=== PATIENT | male | born 1970 ===

== ENCOUNTER 2017-05-22 02:28 | Emergency (ER) | payer SELFPAY ==
[~2017-05-22] VITALS: Ht 180.3 cm; Wt 100.0 kg
[2017-05-22] VITALS (7 sets, daily range): BP systolic 108–152; BP diastolic 62–99; PULSE 59–89; RESP 15–18; TEMP 98.1; O2SAT 98–100
[2017-05-22] MEDS ORDERED: ceFAZolin 2 GM PREMIX 50 ML ONE (03:04)
[2017-05-22] MEDS ORDERED: ONDANSETRON HCL 4 MG/2 ML VIAL ONE (03:04)
[2017-05-22] MEDS ORDERED: MORPHINE SULFATE 8 MG/ML INJ ONE (03:04)
[2017-05-22] MEDS ORDERED: DIPHTH/TETANUS/ACEL PERTUSSIS (BOOSTER) 0.5 ML VIAL/PFS IM ONE (03:05)
[2017-05-22] MEDS ORDERED: LORazepam 2 MG/ML VIAL ONE ×2 (03:10→04:04)
[2017-05-22] MEDS ORDERED: MIDAZOLAM HCL 5 MG/ML VIAL (1 ML) ONE ×5 (03:17→03:50)
[2017-05-22] MEDS ORDERED: HYDROmorphone HCL PF 2 MG/ML VIAL ONE (03:22)
--- NOTE | 2017-05-22 03:43 | RADRPT ---
EXAM DATE/TIME: 05/22/2017 03:18 [facility] COMPARISON: No previous studies available for comparison. INDICATIONS : Trauma alert. Fall. MEDICAL HISTORY : None. SURGICAL HISTORY : None. ENCOUNTER: Initial ACUITY: 1 day PAIN SCORE: 10/10 LOCATION: Bilateral chest FINDINGS: A single view of the chest demonstrates the lungs to be symmetrically aerated without evidence of mas s, infiltrate or effusion. The cardiomediastinal contours are unremarkable. Osseous structures are intact. There is motion artifact. CONCLUSION: No acute disease. Godfrey Dalton MD on May 22, 2017 at 3:41 Board Certified Radiologist. This report was verified electronically.
[2017-05-22] MEDS ORDERED: MORPHINE SULFATE 8 MG/ML INJ IV PUSH PRN (03:45)
[2017-05-22] MEDS ORDERED: SODIUM CHLORIDE 0.9% FLUSH 10 ML FLUSH IV FLUSH PRN (03:45)
[2017-05-22] MEDS ORDERED: MAGNESIUM HYDROXIDE SUSP 30 ML CUP PO PRN (03:45)
[2017-05-22] MEDS ORDERED: ONDANSETRON HCL 4 MG/2 ML VIAL IV PRN (03:45)
[2017-05-22] MEDS ORDERED: ACETAMINOPHEN/HYDROcodone 325 MG/5 MG TAB PO PRN ×2 (03:45)
[2017-05-22] MEDS ORDERED: CHLORHEXIDINE GLUCONATE 2 % 1 PACK (2 CLOTHS) TOP PRN (03:45)
[2017-05-22] MEDS ORDERED: MISCELLANEOUS NURSING INFORMATION XX SCH (03:45)
[2017-05-22] MEDS ORDERED: ENALAPRILAT 1.25 MG/ML VIAL IV PRN (03:45)
[2017-05-22 03:48] LABS: I-STAT POTASSIUM 3.8 MMOL/L (3.5-4.9)
[2017-05-22 03:50] LABS: BASOPHIL % 0.3 % (0.0-2.0); EOSINOPHIL # 0.1 TH/MM3 (0-0.4); EOSINOPHIL % 1.5 % (0.0-4.0); HEMATOCRIT 41.7 % (39.0-51.0); LYMPH % 34.6 % (9.0-44.0); LYMPHOCYTE # 3.2 TH/MM3 (1.0-4.8); MEAN CELL VOLUME 96.4 FL (80.0-100.0); MEAN CORPUSCULAR HEMOGLOBIN 33.1 PG (27.0-34.0); MEAN CORPUSCULAR HGB CONC 34.4 % (32.0-36.0); MONO % 9.1 % (0.0-8.0); NEUT % 54.5 % (16.0-70.0); PLATELET COUNT 174 TH/MM3 (150-450); RED BLOOD COUNT 4.32 MIL/MM3 (4.50-5.90); RED CELL DISTRIBUTION WIDTH 13.6 % (11.6-17.2); WHITE BLOOD COUNT 9.2 TH/MM3 (4.0-11.0)
--- NOTE | 2017-05-22 03:53 | PD ---
HPI Chief Complaint: Trauma (Alert) Time Seen by Provider: 03:32 Travel History International Travel<30 days: No Contact w/Intl Traveler<30days: No Traveled to known affect area: No History of Present Illness HPI The patient is a 47 year old male who presents to the [facility] emergency department with a history of reportedly prior to arrival falling off of 2 scaffolds at work. He reports that his boss drove him in. He reports that each scaffold is 7 feet. He estimates that he fell 14 feet to the ground. He reports that he landed on his right side. He reports having severe right sided back pain, chest pain, and shortness of breath. The patient also reports having low back pain. The patient ambulated into the emergency department. The patient was initially evaluated by Dr. Damon while I was in with another critical patient. As the patient was noted to be diaphoretic and experiencing chest pain with shortness of breath with diminished breath sounds on the right side the patient was called as a trauma alert. The patient is unsure when his tetanus was last updated. On review of systems, the patient reports having neck pain, mid and low back pain, chest pain, shortness of breath, abdominal pain. He reports having numbness to the right leg. On review of systems otherwise, he denies any recent fevers, cough, congestion, vomiting, or diarrhea. He denies having any recent urinary symptoms. [facility] Past Medical History Narrative Medical The patient reports having a past medical history of posttraumatic stress disorder. Medical History: Denies Significant Hx Diminished Hearing: No Tetanus Vaccination: Unknown Influenza Vaccination: No Past Surgical History Narrative Surgical The patient denies any past surgical history. Surgical History: No Previous Surgery Social History Alcohol Use: No Tobacco Use: Yes (1PPD) Substance Use: Yes (occasional marijuana) Allergies-Medications (Allergen,Severity, Reaction): Coded Allergies: Haldol (Verified Allergy, Unknown, 05/22/17) Risperdal (Verified Allergy, Unknown, 05/22/17) Tylenol (Verified Allergy, Unknown, 05/22/17) Reported Meds & Prescriptions Reported Meds & Active Scripts Active No Active Prescriptions or Reported Medications Review of Systems Except as stated in HPI: all other systems reviewed are Neg General / Constitutional: No: Fever Eyes: No: Visual changes HENT: No: Headaches Cardiovascular: Positive: Chest Pain or Discomfort, Diaphoresis, Dyspnea on exertion Respiratory: Positive: Shortness of Breath Gastrointestinal: Positive: Abdominal Pain Genitourinary: No: Dysuria Musculoskeletal: Positive: Myalgias, Arthralgias, Limited ROM, Pain Skin: No Rash Neurologic: No: Weakness, Focal Abnormalities, Headache, Change in Mentation, Slurred Speech, Sensory Disturbance Psychiatric: No: Depression Endocrine: No: Polydipsia Hematologic/Lymphatic: No: Easy Bruising Physical Exam Narrative General: The patient is a well-developed well-nourished male, uncomfortable appearing on arrival, slightly diaphoretic. Head and Neck exam: Head is normocephalic atraumatic. No facial bone tenderness or increased facial bone mobility noted on palpation. Eyes: EOMI, pupils are equal round and reactive to light. Nose: Midline septum with pink mucous membranes Mouth: Dentition unremarkable. Moist mucus membranes. Posterior oropharynx is not erythematous. No tonsillar hypertrophy. Uvula midline. Airway patent. Neck: The patient is immobilized in a cervical collar. No tracheal deviation. The trachea appears midline. Cardiovascular: Sinus tachycardia in the low 100s without murmurs, gallops, or rubs. No pulse deficit to the extremities and simultaneous auscultation and palpation of his radial artery. Lungs: Clear to auscultation bilaterally. No wheezes, rhonchi, or rales. He has chest wall tenderness diffusely on palpation along the right lateral chest wall and right posterior chest wall. No erythema or ecchymosis noted. No crepitus, step off, or flail segment noted. Abdomen: Soft, without tenderness to palpation in all 4 quadrants of the abdomen. No guarding, rebound, or rigidity. No erythema or ecchymosis noted. Extremities: No instability or pain noted on pelvic rock. No clubbing, cyanosis , or edema. 2+ pulses in all 4 extremities. No extremity tenderness or deformity noted on palpation or passive/ active range of motion, except Back: The patient reports having tenderness on palpation of his entire thoracic spine as well as his lumbar spine. No stepoff or crepitus noted. No costovertebral angle tenderness to palpation. No erythema or ecchymosis. Neurologic Exam: The patient was agitated and uncooperative. He is moving all of his extremities equally with no evidence of facial asymmetry. Skin Exam: No rash noted. Intact skin that is warm and dry. Data Data Last Documented VS Vital Signs Date Time Temp Pulse Resp B/P Pulse Ox O2 Delivery O2 Flow Rate FiO2 05/22/17 06:26 80 16 111/78 100 Room Air 05/22/17 04:38 2 05/22/17 02:36 98.1 Orders Morphine Inj (Morphine Inj) (05/22/17 03:04) Ondansetron Inj (Zofran Inj) (05/22/17 03:04) Cefazolin 2 Gm Premix (Ancef 2 Gm Premix (05/22/17 03:04) Dpge-Oqw-Qwqbcz (Booster) Inj (Boostrix (05/22/17 03:05) Lorazepam Inj (Ativan Inj) (05/22/17 03:10) I-Stat Profile (05/22/17 03:11) I-Stat Creatinine (05/22/17 03:11) Complete Blood Count With Diff (05/22/17 03:11) Prothrombin Time / Inr (Pt) (05/22/17 03:11) Act Partial Throm Time (Ptt) (05/22/17 03:11) Type And Screen (05/22/17 03:11) Red Blood Cells (Rbc) (05/22/17 03:11) Urinalysis - C+S If Indicated (05/22/17 03:11) Drug Screen, Random Urine (05/22/17 03:11) Chest, Single Ap (05/22/17 03:11) Ct Brain W/O Iv Contrast(Rout) (05/22/17 03:11) Ct Cerv Spine W/O Contrast (05/22/17 03:11) Ct Abd/Pel W Iv Contrast(Rout) (05/22/17 03:11) Ct Thorax/ Chest W Iv Contrast (05/22/17 03:11) Ct Thor Spine W/O Contrast (05/22/17 03:11) Ct Lumb Spine W/O Contrast (05/22/17 03:11) Iv Access Insert/Monitor (05/22/17 03:11) Ecg Monitoring (05/22/17 03:11) Oximetry (05/22/17 03:11) Oxygen Administration (05/22/17 03:11) Midazolam Inj (Versed Inj) (05/22/17 03:17) Hydromorphone Pf Inj (Dilaudid Pf Inj) (05/22/17 03:22) Midazolam Inj (Versed Inj) (05/22/17 03:23) Midazolam Inj (Versed Inj) (05/22/17 03:33) Consult Blanca Gts (05/22/17 ) Admit To Inpatient (05/22/17 ) Vital Signs (Adult) VERNA.QSHIFT (05/22/17 03:32) Intake + Output VERNA.Q8H (05/22/17 03:32) Neuro Checks VERNA.Q4H (05/22/17 03:32) Activity Bed Rest (05/22/17 03:32) Instruction (05/22/17 03:32) Resp Oxygen Alec C Titrat 1-4 L (05/22/17 ) Sodium Chloride 0.9% Flush (Ns Flush) (05/22/17 03:45) Morphine Inj (Morphine Inj) (05/22/17 03:45) Acetamin-Hydrocod 325-5 Mg ([place] 5-325 (05/22/17 03:45) Acetamin-Hydrocod 325-5 Mg ([place] 5-325 (05/22/17 03:45) Enalaprilat Inj (Vasotec Inj) (05/22/17 03:45) Ondansetron Inj (Zofran Inj) (05/22/17 03:45) Bacitracin Oint (Baciguent Oint) (05/22/17 09:00) Docusate Sodium (Colace) (05/22/17 09:00) Magnesium Hydroxide Liq (Milk Of Magnesi (05/22/17 03:45) ^ Initiate Protocol (05/22/17 03:32) Instruction (05/22/17 03:32) [facility] Nursing Information (05/22/17 03:45) Chlorhexidine 2% Cloth (Chlorhexidine 2% (05/22/17 04:00) Chlorhexidine 2% Cloth (Chlorhexidine 2% (05/22/17 03:45) Mrsa Pcr Surveillance (05/22/17 03:32) Inpatient Certification (05/22/17 ) Midazolam Inj (Versed Inj) (05/22/17 03:46) Midazolam Inj (Versed Inj) (05/22/17 03:50) Collar [place] (05/22/17 ) Lorazepam Inj (Ativan Inj) (05/22/17 04:04) Propofol 200 Mg/20 Ml Inj (Diprivan 200 (05/22/17 04:06) Diet Clear Liquid (05/22/17 Breakfast) Activity Oob Ad Solange (05/22/17 04:17) Restraints Non-Violent VERNA.Q3H (05/22/17 04:30) Psych Screen (05/22/17 04:40) Iohexol 350 Inj (Omnipaque 350 Inj) (05/22/17 04:42) Trauma Office Use Only (05/22/17 06:51) Labs Laboratory Tests Test 05/22/17 05/22/17 03:20 03:30 White Blood Count 9.2 TH/MM3 Red Blood Count 4.32 MIL/MM3 Hemoglobin 14.3 GM/DL Hematocrit 41.7 % Mean Corpuscular Volume 96.4 FL Mean Corpuscular Hemoglobin 33.1 PG Mean Corpuscular Hemoglobin 34.4 % Concent Red Cell Distribution Width 13.6 % Platelet Count 174 TH/MM3 Mean Platelet Volume 7.9 FL Neutrophils (%) (Auto) 54.5 % Lymphocytes (%) (Auto) 34.6 % Monocytes (%) (Auto) 9.1 % Eosinophils (%) (Auto) 1.5 % Basophils (%) (Auto) 0.3 % Neutrophils # (Auto) 5.0 TH/MM3 Lymphocytes # (Auto) 3.2 TH/MM3 Monocytes # (Auto) 0.8 TH/MM3 Eosinophils # (Auto) 0.1 TH/MM3 Basophils # (Auto) 0.0 TH/MM3 CBC Comment AUTO DIFF Differential Total Cells 100 Counted Neutrophils % (Manual) 42 % Band Neutrophils % 2 % Lymphocytes % 44 % Monocytes % 6 % Eosinophils % 3 % Neutrophils # (Manual) 4.3 TH/MM3 Metamyelocytes 1 % Myelocytes 2 % Differential Comment FINAL DIFF MANUAL Atypical Lymphocytes % Platelet Estimate NORMAL Platelet Morphology Comment NORMAL Red Cell Morphology Comment NORMAL Prothrombin Time 10.7 SEC Prothromb Time International 1.0 RATIO Ratio Activated Partial 28.0 SEC Thromboplast Time Blood Type O POSITIVE Antibody Screen NEGATIVE Crossmatch Leukocyte-Reduced Red Blood Cells Blood Bank Comment Bedside Hemoglobin 13.9 G/DL Bedside Hematocrit 41.0 % Bedside Sodium 143 MMOL/L Bedside Potassium 3.8 MMOL/L Bedside Chloride 105 MMOL/L Bedside Blood Urea Nitrogen 8 MG/DL Bedside Creatinine 0.7 MG/DL Bedside Glucose 93 MG/DL [facility] Medical Screen Exam Complete: Yes Emergency Medical Condition: Yes Medical Record Reviewed: Yes EKG Prior to Arrival: Yes Interpretation(s) Last Impressions Thoracic Spine CT 05/22/17310 Signed Impressions: Service Date/Time: Monday, May 22, 2017 04:06 - CONCLUSION: Negative trauma study. Godfrey Dalton MD Lumbar Spine CT 05/22/17310 Signed Impressions: Service Date/Time: Monday, May 22, 2017 03:52 - CONCLUSION: Negative trauma study. Godfrey Dalton MD Head CT 05/22/17310 Signed Impressions: Service Date/Time: Monday, May 22, 2017 03:32 - CONCLUSION: Limited suboptimal study demonstrating no definite hemorrhage or mass effect. Godfrey Dalton MD Chest X-Ray 05/22/17310 Signed Impressions: Service Date/Time: Monday, May 22, 2017 03:18 - CONCLUSION: No acute disease. Godfrey Dalton MD Chest CT 05/22/17310 Signed Impressions: Service Date/Time: Monday, May 22, 2017 04:06 - CONCLUSION: Negative trauma study. Godfrey Dalton MD Cervical Spine CT 05/22/17310 Signed Impressions: Service Date/Time: Monday, May 22, 2017 03:47 - CONCLUSION: Negative trauma CT. Godfrey Dalton MD Abdomen/Pelvis CT 05/22/17310 Signed Impressions: Service Date/Time: Monday, May 22, 2017 04:06 - CONCLUSION: Negative trauma CT Godfrey Dalton MD Differential Diagnosis Intracranial trauma, versus cervical spine trauma, versus intrathoracic trauma, versus intra-abdominal trauma Narrative Course During the course of the patients emergency department visit, the patients history, examination, and differential diagnosis were reviewed with the patient. The patient had IV access obtained and blood work sent for analysis. A trauma alert was called while the patient was in the emergency department. The trauma surgeon, was available and trauma bay to assess the patient with me. The patient was initially provided normal saline 1 L IV fluid bolus. The patient had his tetanus updated. The patient was given morphine 4 mg IV, Zofran 4 mg IV. The patient continued to be agitated and reported severe pain and was given an additional 4 mg IV. The patient was agitated and was given Ativan 1 mg IV. The patient continued to be agitated and was given Versed 2.5 mg IV so that he could be further assessed and lie back in the bed to obtain imaging. The patients laboratory studies were reviewed and remarkable for a white count of 9.2, hemoglobin 14.3, platelets 174 with 9.1 monocytes, i-STAT reveals a sodium of 143, potassium 3.8, chloride 105, BUN 8, creatinine 0.7, glucose 93, PT 10.7, PTT 28 Radiology studies were reviewed and remarkable for a CT scan of the brain that shows a live butted suboptimal study, demonstrating no definite hemorrhage or mass effect. Chest x-ray is unremarkable, CT scan of the C-spine, chest CT, T- spine CT, lumbar spine CT, CT scan of the abdomen and pelvis showed no evidence of acute traumatic injury. The patient's case was discussed again with . He was agreeable with the plan for the patient to be discharged from the hospital. The patient was brought back to the emergency department bed. The patient continued to be agitated, stating that he wanted to leave. We did explain to him that he has been given medication that can be sedating, therefore he would need to be monitored in the emergency department until the sedative medication has worn off. The patient continued to be agitated. The patient was restrained for his and the staff's safety. A psychiatric screen was ordered. The patient has been medically cleared for evaluation by the psychiatric screener. Trauma Alert - Level One Trauma Alert Level One: Full trauma team activate, Patient evaluated, Trauma surgeon summoned Time Surgeon Summoned: 03:00 (Surgeon asked to come in) Physician Communication The patient's case is discussed with Dr. Polk. Diagnosis Diagnosis: Primary Impression: Fall Qualified Code: W19.XXXA - Fall, initial encounter Additional Impressions: Acute psychosis Agitation Scripts No Active Prescriptions or Reported Meds Lidia Sotomayor MD May 22, 2017 03:53
[2017-05-22 03:54] LABS: HEMO FLAGS AUTO DIFF
[2017-05-22 03:58] LABS: PROTHROMBIN TIME - PATIENT 10.7 SEC (9.8-11.6)
[2017-05-22] MEDS ORDERED: CHLORHEXIDINE GLUCONATE 2 % 1 PACK (2 CLOTHS) TOP SCH (04:00)
[2017-05-22] MEDS ORDERED: PROPOFOL 200 MG/20 ML AMP ONE (04:06)
--- NOTE | 2017-05-22 04:30 | RADRPT ---
EXAM DATE/TIME: 05/22/2017 03:32 [facility] COMPARISON: No previous studies available for comparison. INDICATIONS : Trauma. Fell 14 feet onto right side. RADIATION DOSE: 56.35 CTDIvol (mGy) MEDICAL HISTORY : None SURGICAL HISTORY : None. ENCOUNTER: Initial ACUITY: 1 day PAIN SCALE: 10/10 LOCATION: cranial TECHNIQUE: Multiple contiguous axial images were obtained of the head. Using automated exposure control and adj ustment of the mA and/or kV according to patient size, radiation dose was kept as low as reasonably a chievable to obtain optimal diagnostic quality images. DICOM format image data is available electro nically for review and comparison. FINDINGS: Suboptimal examination due to extensive motion artifact significantly limiting the sensitiv ity of this exam. There is no definite gross hemorrhage or definite mass effect however small hemorrh ages could be obscured. The ventricular system appears within normal limits. The posterior fossa and brainstem are intact. There is no visualized skull fracture. CONCLUSION: Limited suboptimal study demonstrating no definite hemorrhage or mass effect. Godfrey Dalton MD on May 22, 2017 at 4:25 Board Certified Radiologist. This report was verified electronically.
--- NOTE | 2017-05-22 04:31 | RADRPT ---
EXAM DATE/TIME: 05/22/2017 03:47 [facility] COMPARISON: No previous studies available for comparison. INDICATIONS : Trauma. Fell 14 feet onto right side. RADIATION DOSE: 69.20 CTDIvol (mGy) MEDICAL HISTORY : None SURGICAL HISTORY : None. ENCOUNTER: Initial ACUITY: 1 day PAIN SCALE: 10/10 LOCATION: neck TECHNIQUE: Volumetric scanning of the cervical spine was performed. Multiplanar reconstructions i n the sagittal, coronal and oblique axial planes were performed. Using automated exposure control a nd adjustment of the mA and/or kV according to patient size, radiation dose was kept as low as reason ably achievable to obtain optimal diagnostic quality images. DICOM format image data is available e lectronically for review and comparison. FINDINGS: The sagittal reconstructions demonstrate normal alignment and normal prevertebral soft tissues. The d ens is intact and there is a normal atlantoaxial relationship. The axial images demonstrate that the vertebral bodies and posterior elements are intact. The soft ti ssues are within normal limits. There is no evidence of acute fracture or malalignment. CONCLUSION: Negative trauma CT. Godfrey Dalton MD on May 22, 2017 at 4:29 Board Certified Radiologist. This report was verified electronically.
--- NOTE | 2017-05-22 04:33 | RADRPT ---
EXAM DATE/TIME: 05/22/2017 04:06 [facility] COMPARISON: No previous studies available for comparison. INDICATIONS : Trauma. Fell 14 feet onto right side. IV CONTRAST: 95 cc Omnipaque 350 (iohexol) IV ; Cumulative dose for multiple exams. RADIATION DOSE: 7.31 CTDIvol (mGy) ; Combined studies - Thorax/Abdomen/Pelvis MEDICAL HISTORY : None SURGICAL HISTORY : None. ENCOUNTER: Initial ACUITY: 1 day PAIN SCALE: 10/10 LOCATION: chest TECHNIQUE: Volumetric scanning of the chest was performed. Using automated exposure control and adjustment of t he mA and/or kV according to patient size, radiation dose was kept as low as reasonably achievable to obtain optimal diagnostic quality images. DICOM format image data is available electronically for review and comparison. Follow-up recommendations for incidentally detected pulmonary nodules are based at a minimum on nodul e size and patient risk factors according to Fleischner Society Guidelines. FINDINGS: LUNGS: There is no consolidation or pneumothorax. No concerning pulmonary nodule is visualized. PLEURA: There is no pleural thickening or pleural effusion. MEDIASTINUM: The heart and great vessels demonstrate no acute abnormality. There is no mediastinal or hilar lymph adenopathy. AXILLAE: Within normal limits. No lymphadenopathy. SKELETAL: Within normal limits for patient age. MISCELLANEOUS: The visualized upper abdominal organs demonstrate no acute abnormality. CONCLUSION: Negative trauma study. Godfrey Dalton MD on May 22, 2017 at 4:30 Board Certified Radiologist. This report was verified electronically.
--- NOTE | 2017-05-22 04:34 | RADRPT ---
EXAM DATE/TIME: 05/22/2017 04:06 [facility] COMPARISON: No previous studies available for comparison. INDICATIONS : Trauma. Fell 14 feet onto right side. IV CONTRAST: 95 cc Omnipaque 350 (iohexol) IV ; Cumulative dose for multiple exams. ORAL CONTRAST: No oral contrast ingested. RADIATION DOSE: 7.31 CTDIvol (mGy) ; Combined studies - Thorax/Abdomen/Pelvis MEDICAL HISTORY : None SURGICAL HISTORY : None. ENCOUNTER: Initial ACUITY: 1 day PAIN SCALE: 10/10 LOCATION: abdomen TECHNIQUE: Volumetric scanning of the abdomen and pelvis was performed. Using automated exposure control and ad justment of the mA and/or kV according to patient size, radiation dose was kept as low as reasonably achievable to obtain optimal diagnostic quality images. DICOM format image data is available electro nically for review and comparison. FINDINGS: There is mild streak and motion artifact. LOWER LUNGS: The visualized lower lungs are clear. LIVER: Homogeneous density without lesion. There is no dilation of the biliary tree. No calcified gallston es. There is moderate hepatic steatosis. SPLEEN: Normal size without lesion. PANCREAS: Within normal limits. KIDNEYS: Normal in size and shape. There is no mass, stone or hydronephrosis. ADRENAL GLANDS: Within normal limits. VASCULAR: There is no aortic aneurysm. BOWEL/MESENTERY: No oral contrast was given limiting the sensitivity of the exam. The stomach, small bowel, and colon demonstrate no acute abnormality. There is no free intraperitoneal air or fluid. ABDOMINAL WALL: Within normal limits. RETROPERITONEUM: There is no lymphadenopathy. BLADDER: No wall thickening or mass. REPRODUCTIVE: Within normal limits. INGUINAL: There is no lymphadenopathy or hernia. MUSCULOSKELETAL: Within normal limits for patient age. CONCLUSION: Negative trauma CT Godfrey Dalton MD on May 22, 2017 at 4:31 Board Certified Radiologist. This report was verified electronically.
[2017-05-22] MEDS ORDERED: IOHEXOL 350 MG/ML 10 ML VIAL (for RAD DIAG) IV ONE (04:42)
[2017-05-22 04:49] LABS: BANDS 2 % (0-6); EOSINOPHILS 3 % (0-4); METAMYELOCYTES 1 % (0-1); MYELOCYTES 2 % (0-0); NEUTROPHIL # MANUAL DIFF 4.3 TH/MM3 (1.8-7.7); PLATELET ESTIMATE SMEAR NORMAL (NORMAL); PLATELET MORPHOLOGY NORMAL (NORMAL); POLYS (SEG NEUTROPHILS) 42 % (16-70); SCAN/DIFF FINAL DIFF MANUAL; WBC DIFF SAMPLE 100
--- NOTE | 2017-05-22 05:00 | RADRPT ---
EXAM DATE/TIME: 05/22/2017 03:52 [facility] COMPARISON: No previous studies available for comparison. INDICATIONS : Trauma. Fell 14 feet onto right side. RADIATION DOSE: ; Reconstructed from previous dataset, no dose MEDICAL HISTORY : None SURGICAL HISTORY : None. ENCOUNTER: Initial ACUITY: 1 day PAIN SCALE: 10/10 LOCATION: lumbar TECHNIQUE: Volumetric scanning of the lumbar spine was performed. Multiplanar reconstructions in the sagittal, coronal and oblique axial planes were performed. Using automated exposure control and adjustment of the mA and/or kV according to patient size, radiation dose was kept as low as reasonably achievable t o obtain optimal diagnostic quality images. DICOM format image data is available electronically for review and comparison. FINDINGS: VERTEBRAE: Normal vertebral body height. ALIGNMENT: No evidence of subluxation. DISCS: Degenerative disc change is present L5-S1 level with mild disc space narrowing and vacuum disc p henomena. Axial images demonstrate that the vertebral bodies and posterior elements are intact. The visualized portions of the sacrum is intact as well. CONCLUSION: Negative trauma study. Godfrey Dalton MD on May 22, 2017 at 4:56 Board Certified Radiologist. This report was verified electronically.
--- NOTE | 2017-05-22 05:03 | RADRPT ---
EXAM DATE/TIME: 05/22/2017 04:06 [facility] COMPARISON: No previous studies available for comparison. INDICATIONS : Trauma. Fell 14 feet onto right side. RADIATION DOSE: ; Reconstructed from previous dataset, no dose MEDICAL HISTORY : None SURGICAL HISTORY : None. ENCOUNTER: Initial ACUITY: 1 day PAIN SCALE: 10/10 LOCATION: thoracic TECHNIQUE: Volumetric scanning of the thoracic spine was performed. Multiplanar reconstructions in the sagittal , coronal and oblique axial planes were performed. Using automated exposure control and adjustment o f the mA and/or kV according to patient size, radiation dose was kept as low as reasonably achievable to obtain optimal diagnostic quality images. DICOM format image data is available electronically f or review and comparison. FINDINGS: Images are mildly degraded by motion and streak artifact. The vertebral bodies of the thoracic spine are in normal alignment without evidence of subluxation. Vertebral body height is maintained. No fractures are seen. The axial images demonstrate that the vertebral bodies and posterior elements are intact. The paraspi nous soft tissues are unremarkable. CONCLUSION: Negative trauma study. Godfrey Dalton MD on May 22, 2017 at 4:59 Board Certified Radiologist. This report was verified electronically.
--- NOTE | 2017-05-22 07:58 | MH ---
cc: PAUL WILLIS DATE OF ADMISSION 05/22/2017 CHIEF COMPLAINT Trauma alert HISTORY OF PRESENT ILLNESS Patient is a 47-year-old -Welsh male who presented to the emergency department appearing to be intoxicated and complaining of right-sided flank pain and buttock pain. The patient states that he fell 14 feet while at work from some scaffolding. The patient states that his "boss dropped him off at the ER" but with this was done early a.m. in the morning and this was not witnessed by any staff. The patient was not dressed for any work. The patient seen with a stable intact airway breathing and circulation and again appeared intoxicated. The patient had a tenderness to the flank. The patient was evaluated by emergency room physician and due to concern for pneumothorax was upgraded to a trauma alert. The patient is a poor historian and cannot provide any further history. REVIEW OF SYSTEMS, PAST MEDICAL AND SURGICAL HISTORY, ALLERGIES, MEDICATIONS, FAMILY HISTORY AND SOCIAL HISTORY All unable to be obtained due to patient with altered mental status. PHYSICAL EXAM VITAL SIGNS: Heart rate stable in the 90s, blood pressure hypertensive to 170s, O2 saturation 100% on nasal cannula. GENERAL: The patient is a well-developed, well-nourished -Welsh male in no acute distress. He is uncooperative and agitated. HEAD: Normocephalic, atraumatic. EYES: Pupils round, reactive, to light. Sclerae is anicteric. EARS, NOSE, AND THROAT: Midface is stable. Oral cavity is clear. NECK: Cervical collar is in place. C-spine is nontender on palpation without deformity. Trachea is midline. No JVD. LUNGS: Breath sounds present bilaterally. Nonlabored breathing pattern. HEART: Regular rate and rhythm. ABDOMEN: Soft, nontender to palpation. No organomegaly. No ascites. BACK: Subjectively tender over the right flank with no signs of trauma. The thoracic and lumbar spine nontender. PELVIC: Stable without deformity. EXTREMITIES: No clubbing, cyanosis or edema. No deformity to the four extremities. NEUROLOGIC: The patient's GCS is 14, uncooperative moving all extremities, grossly normal. Cranial II-XII grossly intact. LABORATORY VALUES Unremarkable IMAGING STUDIES Chest x-ray Shows no pneumothorax. No acute injuries. CT scan of the patient's head and C-spine is negative for thoracic or cervical spine injury. CT of the patient's chest, abdomen and pelvis is negative for intrathoracic or intraabdominal injury. ASSESSMENT/PLAN Patient is a 47-year-old -Welsh male with altered mental status likely due to substance abuse overdose. The tox screen and alcohol are pending. The patient is hemodynamically stable and neurologically intact. We will place the patient on observation due to his altered mental status. As the patient has no acute injuries and will likely be discharged. The patient also might benefit from a psych evaluation as the patient has a potential history of PTSD and psychiatric diagnosis. MD NADIRA Ly/EMERITA /7:36 AM /7:47 AM
[2017-05-22] MEDS ORDERED: BACITRACIN TOP OINT 15 GM TUBE TOP SCH (09:00)
[2017-05-22] MEDS ORDERED: DOCUSATE SODIUM 100 MG CAP PO SCH (09:00)
[2017-05-22 09:50] LABS: BLOOD, URINE NEG (NEG); GLUCOSE,URINE NEG (NEG); KETONE, URINE NEG (NEG); NITRITE,URINE NEG (NEG); URINE COLOR YELLOW (YELLW/STRAW)
[2017-05-22 09:51] LABS: COMMENT (UR) CATH-CULT NOT IND; CULTURE IF INDICATED CATH CULTURE NOT IND
[2017-05-22 09:57] LABS: AMPHETAMINE, URINE NEG (NEG); BARBITURATES, URINE NEG (NEG); COCAINE, URINE NEG (NEG)
--- NOTE | 2017-05-22 10:50 | PD ---
History of Present Illness Chief Complaint: Trauma (Alert) Time Seen by Provider: 10:15 Travel History International Travel<30 Days: No Contact w/Intl Traveler<30days: No Known affected area: No Legal Status Legal Status: Voluntary History of Present Illness: History of Present Illness HPI The patient is a 47 year old male who presents to the [facility] emergency department with a history of reportedly falling off of 2 scaffolds at work. After his evaluation he was agitated and required medications as well as restraints. A psychiatric evaluation was ordered as the patient wanted to leave [place] and was under the influence of sedating medications therefore it was felt it would be unsafe. The patient is seen in main ed. He is alert and oriented male who appears to be in pain. He is reporting difficulty walking after the fall and is also complaining of pain. he reports he lives in [place] and is here working with a crew and staying in a hotel. He does not have any telephone numbers of his co workers to call them. His speech is clear and logical and although he is angry he maintains behavioral control. He does not appear internally preoccupied and denies any hallucinatory process. He denies any suicidal or homicidal ideation. He states he has been in the and has been diagnosed with PTSD but he does not receive treatment. Does not endorse any symptom of depression. He feels that he does not need to remain in the ED if he is not going to receive an MRI and is requesting to be discharged. Patient is cognitively intact and therefore capable of making the decision to leave the hospital if he chooses to do so. He accepts the help to get him transportation to his hotel at this time [facility] Past Medical History Medical History: Denies Significant Hx Diminished Hearing: No Tetanus Vaccination: Unknown Influenza Vaccination: No Past Surgical History Surgical History: No Previous Surgery Psychiatric History Psychiatric History Hx Psychiatric Treatment: Reports diagnosis of PTSD but not in treatmetn History of Inpatient Treatment: No Guns or firearms in home: No Social History Male who lives in [place].Here working. Hx Alcohol Use: No Hx Tobacco Use: Yes (1PPD) Hx Substance Use: Yes (occasional marijuana) Substance Use Type: Marijuana Family Psychiatric History None Allergies-Medications (Allergen,Severity, Reaction): Coded Allergies: Haldol (Verified Allergy, Unknown, 05/22/17) Risperdal (Verified Allergy, Unknown, 05/22/17) Tylenol (Verified Allergy, Unknown, 05/22/17) Reported Meds & Prescriptions Reported Meds & Active Scripts Active No Active Prescriptions or Reported Medications Review of Systems Musculoskeletal: COMPLAINS OF: Back pain Exam Alert: Yes [place]: Person (ox4) Mood: Angry Affect: Appropriate Speech: Clear, Logical Eye Contact: Normal Memory Intact: Comment (No gross abnormality) Hallucinations: Other (negative) Delusions: No Suicidal: Ideation (neagtive) Homicidal: Ideation (Negative) Insight/Judgement Fair. not impaired MDM Medical Decision Making Medical Record Reviewed: Yes Assessment/Plan The patient is a 47 year old male who presents to the [facility] emergency department with a history of reportedly falling off of 2 scaffolds at work. After his evaluation he was agitated and required medications as well as restraints. A psychiatric evaluation was ordered as the patient wanted to leave [place] and was under the influence of sedating medications therefore it was felt it would be unsafe. At the time of this evaluation the patient is alert and oriented. He presents no acute psychiatric symptomatology. He does not verbalize any suicidal or homicidal ideation. He is cognitively intact and demonstrates capacity to make decisions. Patient does not meet criteria for BA or for psychiatric treatment and is requesting to be discharged. Orders Morphine Inj (Morphine Inj) (05/22/17 03:04) Ondansetron Inj (Zofran Inj) (05/22/17 03:04) Cefazolin 2 Gm Premix (Ancef 2 Gm Premix (05/22/17 03:04) Kjzh-Lfb-Myhzis (Booster) Inj (Boostrix (05/22/17 03:05) Lorazepam Inj (Ativan Inj) (05/22/17 03:10) I-Stat Profile (05/22/17 03:11) I-Stat Creatinine (05/22/17 03:11) Complete Blood Count With Diff (05/22/17 03:11) Prothrombin Time / Inr (Pt) (05/22/17 03:11) Act Partial Throm Time (Ptt) (05/22/17 03:11) Type And Screen (05/22/17 03:11) Red Blood Cells (Rbc) (05/22/17 03:11) Urinalysis - C+S If Indicated (05/22/17 03:11) Drug Screen, Random Urine (05/22/17 03:11) Chest, Single Ap (05/22/17 03:11) Ct Brain W/O Iv Contrast(Rout) (05/22/17 03:11) Ct Cerv Spine W/O Contrast (05/22/17 03:11) Ct Abd/Pel W Iv Contrast(Rout) (05/22/17 03:11) Ct Thorax/ Chest W Iv Contrast (05/22/17 03:11) Ct Thor Spine W/O Contrast (05/22/17 03:11) Ct Lumb Spine W/O Contrast (05/22/17 03:11) Iv Access Insert/Monitor (05/22/17 03:11) Ecg Monitoring (05/22/17 03:11) Oximetry (05/22/17 03:11) Oxygen Administration (05/22/17 03:11) Midazolam Inj (Versed Inj) (05/22/17 03:17) Hydromorphone Pf Inj (Dilaudid Pf Inj) (05/22/17 03:22) Midazolam Inj (Versed Inj) (05/22/17 03:23) Midazolam Inj (Versed Inj) (05/22/17 03:33) Resp Oxygen Alec C Titrat 1-4 L (05/22/17 ) Sodium Chloride 0.9% Flush (Ns Flush) (05/22/17 03:45) Morphine Inj (Morphine Inj) (05/22/17 03:45) Acetamin-Hydrocod 325-5 Mg ([place] 5-325 (05/22/17 03:45) Acetamin-Hydrocod 325-5 Mg ([place] 5-325 (05/22/17 03:45) Enalaprilat Inj (Vasotec Inj) (05/22/17 03:45) Ondansetron Inj (Zofran Inj) (05/22/17 03:45) Bacitracin Oint (Baciguent Oint) (05/22/17 09:00) Docusate Sodium (Colace) (05/22/17 09:00) Magnesium Hydroxide Liq (Milk Of Magnesi (05/22/17 03:45) [facility] Nursing Information (05/22/17 03:45) Chlorhexidine 2% Cloth (Chlorhexidine 2% (05/22/17 04:00) Chlorhexidine 2% Cloth (Chlorhexidine 2% (05/22/17 03:45) Midazolam Inj (Versed Inj) (05/22/17 03:46) Midazolam Inj (Versed Inj) (05/22/17 03:50) Collar Sunshine (05/22/17 ) Lorazepam Inj (Ativan Inj) (05/22/17 04:04) Propofol 200 Mg/20 Ml Inj (Diprivan 200 (05/22/17 04:06) Psych Screen (05/22/17 04:40) Iohexol 350 Inj (Omnipaque 350 Inj) (05/22/17 04:42) Trauma Office Use Only (05/22/17 06:51) Results Vital Signs Date Time Temp Pulse Resp B/P Pulse Ox O2 Delivery O2 Flow Rate FiO2 05/22/17 08:57 59 18 128/64 100 05/22/17 06:26 80 16 111/78 100 Room Air 05/22/17 04:38 85 16 108/62 100 Nasal Cannula 2 05/22/17 04:36 16 100 Nasal Cannula 2 05/22/17 04:36 100 Nasal Cannula 2 05/22/17 03:30 98 3.00 05/22/17 03:02 98 Nasal Cannula 4.00 05/22/17 03:02 98 4.00 05/22/17 02:51 98 Nasal Cannula 2 05/22/17 02:37 16 Room Air 05/22/17 02:36 98.1 89 15 152/99 100 Room Air Laboratory Tests Test 05/22/17 05/22/17 05/22/17 03:20 03:30 09:15 White Blood Count 9.2 Red Blood Count 4.32 Hemoglobin 14.3 Hematocrit 41.7 Mean Corpuscular Volume 96.4 Mean Corpuscular Hemoglobin 33.1 Mean Corpuscular Hemoglobin 34.4 Concent Red Cell Distribution Width 13.6 Platelet Count 174 Mean Platelet Volume 7.9 Neutrophils (%) (Auto) 54.5 Lymphocytes (%) (Auto) 34.6 Monocytes (%) (Auto) 9.1 Eosinophils (%) (Auto) 1.5 Basophils (%) (Auto) 0.3 Neutrophils # (Auto) 5.0 Lymphocytes # (Auto) 3.2 Monocytes # (Auto) 0.8 Eosinophils # (Auto) 0.1 Basophils # (Auto) 0.0 CBC Comment AUTO DIFF Differential Total Cells 100 Counted Neutrophils % (Manual) 42 Band Neutrophils % 2 Lymphocytes % 44 Monocytes % 6 Eosinophils % 3 Neutrophils # (Manual) 4.3 Metamyelocytes 1 Myelocytes 2 Differential Comment FINAL DIFF MANUAL Atypical Lymphocytes Platelet Estimate NORMAL Platelet Morphology Comment NORMAL Red Cell Morphology Comment NORMAL Prothrombin Time 10.7 Prothromb Time International 1.0 Ratio Activated Partial 28.0 Thromboplast Time Blood Type O POSITIVE Antibody Screen NEGATIVE Crossmatch Leukocyte-Reduced Red Blood Cells Blood Bank Comment Bedside Hemoglobin 13.9 Bedside Hematocrit 41.0 Bedside Sodium 143 Bedside Potassium 3.8 Bedside Chloride 105 Bedside Blood Urea Nitrogen 8 Bedside Creatinine 0.7 Bedside Glucose 93 Urine Color YELLOW Urine Turbidity CLEAR Urine pH 6.0 Urine Specific [place] 1.043 Urine Protein NEG Urine Glucose (UA) NEG Urine Ketones NEG Urine Occult Blood NEG Urine Nitrite NEG Urine Bilirubin NEG Urine Urobilinogen LESS THAN 2.0 Urine Leukocyte Esterase NEG Urine WBC 1 Microscopic Urinalysis Comment CATH-CULT NOT IND Urine Opiates Screen POS Urine Barbiturates Screen NEG Urine Amphetamines Screen NEG Urine Benzodiazepines Screen POS Urine Cocaine Screen NEG Urine Cannabinoids Screen POS Diagnosis Primary Impression: Fall Additional Impression: Adjustment reaction Psychiatrically Cleared: Yes Prescriptions No Active Prescriptions or Reported Meds Problem Qualifiers Primary Impression: Fall Qualified Code: W19.XXXA - Fall, initial encounter Additional Impression: Adjustment reaction Qualified Code: F43.20 - Adjustment disorder, unspecified type Ashlee Kaiser [facility] May 22, 2017 10:50
[2017-05-23] MEDS ORDERED: XANA1TAB2 PO (08:08)
[2017-05-23] MEDS ORDERED: CELE10TA PO (08:08)
[2017-05-23] MEDS ORDERED: ZIPR20 PO (08:08)
== END 2017-05-22 11:03 | disposition left against medical advice (07) ==
LOC: NEPI 02:28 → NEPE 11:03
DX: F43.20 Adjustment disorder, unspecified (principal)
CPT/HCPCS: 70450; 71010; 71260; 72125; 72128; 72131; 74177; 80307; 81001; 82435; 82565; 82947; 84132; 84295; 84520; 85007; 85027; 85610; 85730; 86850; 86900; 86901; 86920; 90715; J0690; J1170; J2060; J2250; J2270; J2405; L0150; Q9967; 96361; 96374; 96375; 96376; 99291; G0390

== ENCOUNTER 2017-05-23 07:34 | Emergency (ER) | payer SELFPAY ==
[~2017-05-23] VITALS: Ht 177.8 cm; Wt 100.0 kg
[2017-05-23 07:36] VITALS: BP 152/82; PULSE 66; RESP 16; TEMP 97.8; O2SAT 100
[2017-05-23] MEDS ORDERED: CELE10TA PO (08:08)
[2017-05-23] MEDS ORDERED: ZIPR20 PO (08:08)
[2017-05-23] MEDS ORDERED: XANA1TAB2 PO (08:08)
--- NOTE | 2017-05-23 09:05 | PD ---
HPI Chief Complaint: Suicide Ideation/Attempt Time Seen by Provider: 08:16 Travel History International Travel<30 days: No Contact w/Intl Traveler<30days: No Traveled to known affect area: No History of Present Illness HPI 47-year-old male came to the emergency room with history of feeling anxious since he has been off his psych medications for past 2 days. Patient says that he is on Geodon, Celexa, Xanax for his psych diagnosis. This was prescribed to him by a psychiatrist in [place] after he was Schuster acted. He says he has a long history of psych disorder for over 16 years where he has been Schuster acted multiple times. He has the habit of cutting himself. He is from [place]. 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 Patient says that he was in [place] for a work when this happened about a month ago. He says all these medications were filled 10 days ago in [place]. However he did not take it for past 2 days and yesterday he was in this emergency room as a trauma alert when he fell off a scaffolding. He was complaining of hip pain and shoulder pain. He was fermin scanned as part of the trauma protocol and everything was negative. He eventually left [place]. Today patient says that when he went back to his room he noticed that all his clothes were gone as well as medications. He thinks his friends took it but he was unable to get hold of them and find out where they could be. When I asked him if these things were stolen and if he has made a police report, he immediately said that "no they are his friends and he has known them for years and he wouldn't call it stealing". But he says because he has not been on those medications he has been feeling very anxious. He walked- in voluntarily into the emergency room. [facility] Past Medical History Narrative Medical List of his past medical, surgical, social and family history is reviewed from the nursing note. Bipolar Disorder: Yes Anxiety: Yes Depression: Yes Diminished Hearing: No Psychiatric: Yes (PTSD) Schizophrenia: Yes Past Surgical History Surgical History: No Previous Surgery Social History Alcohol Use: No Tobacco Use: Yes (1PPD) Substance Use: Yes (occasional marijuana) Allergies-Medications (Allergen,Severity, Reaction): Coded Allergies: Haldol (Verified Allergy, Unknown, 05/23/17) Risperdal (Verified Allergy, Unknown, 05/23/17) Tylenol (Verified Allergy, Unknown, 05/23/17) Comments List of his allergies reviewed from the nursing note. Reported Meds & Prescriptions Reported Meds & Active Scripts Active Reported Geodon (Ziprasidone) 20 Mg Cap 20 Mg PO BID Xanax (Alprazolam) 1 Mg Tab 1 Mg PO Q6H PRN Celexa (Citalopram Hydrobromide) 10 Mg Tab 10 Mg PO DAILY Narrative Medication List of his home medications reviewed from the nursing note. Review of Systems Except as stated in HPI: all other systems reviewed are Neg Physical Exam Narrative GENERAL: Awake, alert, no obvious distress SKIN: Focused skin assessment warm/dry. HEAD: Atraumatic. Normocephalic. EYES: Pupils equal and round. No scleral icterus. No injection or drainage. ENT: No nasal bleeding or discharge. Mucous membranes pink and moist. NECK: Trachea midline. No JVD. CARDIOVASCULAR: Regular rate and rhythm. No murmur appreciated. RESPIRATORY: No accessory muscle use. Clear to auscultation. Breath sounds equal bilaterally. GASTROINTESTINAL: Abdomen soft, non-tender, nondistended. Hepatic and splenic margins not palpable. MUSCULOSKELETAL: No obvious deformities. No clubbing. No cyanosis. No edema. NEUROLOGICAL: Awake and alert. No obvious cranial nerve deficits. Motor grossly within normal limits. Normal speech. PSYCHIATRIC: Appropriate mood and affect; insight and judgment normal. Data Data Last Documented VS Vital Signs Date Time Temp Pulse Resp B/P Pulse Ox O2 Delivery O2 Flow Rate FiO2 05/24/17 06:09 18 05/24/17 02:05 58 138/85 99 Room Air 05/23/17 22:14 97.4 Orders Psych Screen (05/23/17 08:16) Diet Regular Basic (05/23/17 Dinner) Diet Regular Basic (05/24/17 Breakfast) Lorazepam (Ativan) (05/24/17 06:30) Olanzapine Inj (Zyprexa Inj) (05/24/17 06:45) Diet Regular Basic (05/24/17 Lunch) Ziprasidone Inj (Geodon Inj) (05/24/17 13:30) Diphenhydramine Inj (Benadryl Inj) (05/24/17 13:30) Diet Regular Basic (05/24/17 Dinner) Diphenhydramine Inj (Benadryl Inj) (05/24/17 20:30) Ziprasidone Inj (Geodon Inj) (05/24/17 20:30) MDM Medical Decision Making Medical Screen Exam Complete: Yes Emergency Medical Condition: Yes Medical Record Reviewed: Yes Differential Diagnosis Prescription refill, malingering, anxiety Narrative Course 9:04 AM I have medically cleared this patient. However he keeps threatening that he would walk out and kill himself if he doesn't get to see a psychiatrist. A psych screen has been ordered and the psych nurse came and spoke with him as well. Awaiting for the psychiatrist to see him. Patient has been told about this repeatedly. In my opinion his whole story does not add up. There is a secondary gain somewhere and I'm not Schuster acting him at this point. He has been asked to stay in his room till the psychiatrist comes and evaluates him. Procedures EKG Prior to Arrival: Neeru Yusuf MD May 23, 2017 09:05
--- NOTE | 2017-05-23 11:30 | PD ---
History of Present Illness Chief Complaint: Suicide Ideation/Attempt Time Seen by Provider: 11:30 Travel History International Travel<30 Days: No Contact w/Intl Traveler<30days: No Known affected area: No Legal Status Legal Status: Schuster Act Schuster Act Signed By: History of Present Illness: 47-year-old male who was seen yesterday by nurse practitioner Ashlee Kaiser. Returns today with symptoms of depression, tearfulness, suicidal ideation and anger. Apparently the patient went to his hotel room yesterday and found his belongings missing and his coworkers gone. He feels he is having "an episode" of anger and depression. He is unable to verbally contract for safety. He has both suicidal and homicidal ideation. He is also "stranded" although he states he has relatives in [place] and [place]. He indicates to this physician that he is a and his service-connected but our staff found no such service connectedness. When informed of this, the patient rarely becomes more upset and more threatening. 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 However, this does not make him less dangerous to himself and others but rather more so. He is being continued on the Schuster act and being placed on the act waiting list. PFSH Past Medical History Bipolar Disorder: Yes Anxiety: Yes Depression: Yes Diminished Hearing: No Psychiatric: Yes (PTSD) Schizophrenia: Yes Past Surgical History Surgical History: No Previous Surgery Psychiatric History Psychiatric History Hx Psychiatric Treatment: Reports diagnosis of PTSD but not in treatmetn History of Inpatient Treatment: No Guns or firearms in home: No Social History Hx Alcohol Use: No Hx Tobacco Use: Yes (1PPD) Hx Substance Use: Yes (occasional marijuana) Substance Use Type: Marijuana Hx of Substance Use Treatment: No Allergies-Medications (Allergen,Severity, Reaction): Coded Allergies: Haldol (Verified Allergy, Unknown, 05/23/17) Risperdal (Verified Allergy, Unknown, 05/23/17) Tylenol (Verified Allergy, Unknown, 05/23/17) Reported Meds & Prescriptions Reported Meds & Active Scripts Active Reported Geodon (Ziprasidone) 20 Mg Cap 20 Mg PO BID Xanax (Alprazolam) 1 Mg Tab 1 Mg PO Q6H PRN Celexa (Citalopram Hydrobromide) 10 Mg Tab 10 Mg PO DAILY Review of Systems Except as stated in HPI: all other systems reviewed are Neg Exam Alert: Yes [place]: Person, Place, Date, Situation Mood: Angry, Anxious, Depressed Affect: Labile Speech: Clear, Logical Eye Contact: Normal Memory Intact: Immediate, Recent, Remote Delusions: No Insight/Judgement Adequate MDM Medical Decision Making Medical Record Reviewed: Yes Assessment/Plan Patient appears to have situational anxiety and anger and depression. He states he has 4 children but has not been part of their upbringing because he has been overseas with the . He does not support the idea of trying to have a relationship with the children or their mother. He has a mother in [place] and does not support the idea of going there to be with her. He has lived recently in [place] and does not support the idea of returning to [place]. This physician continues to feel the patient is at significant risk for self-harm and harm to others and is likely to have personality traits which are substantially maladaptive. Orders Psych Screen (05/23/17 08:16) Results Vital Signs Date Time Temp Pulse Resp B/P Pulse Ox O2 Delivery O2 Flow Rate FiO2 05/23/17 07:48 82 18 05/23/17 07:48 76 18 Room Air 05/23/17 07:36 97.8 66 16 152/82 100 Room Air Diagnosis Primary Impression: Adjustment disorder with mixed disturbance of emotions and conduct Vinnie Page MD May 23, 2017 11:30
[2017-05-23 11:42] VITALS: BP 125/76; PULSE 66; RESP 18; O2SAT 96
[2017-05-23 22:14] VITALS: BP 112/62; PULSE 52; RESP 18; TEMP 97.4; O2SAT 99
[2017-05-24 02:05] VITALS: BP 138/85; PULSE 58; RESP 20; O2SAT 99
[2017-05-24 06:09] VITALS: RESP 18
[2017-05-24] MEDS ORDERED: LORazepam 2 MG TAB PO ONE (06:30)
[2017-05-24] MEDS ORDERED: OLANZapine IM 10 MG VIAL IM ONE (06:45)
[2017-05-24] MEDS ORDERED: ZIPRASIDONE MESYLATE 20 MG VIAL IM ONE ×2 (13:30→20:30)
[2017-05-24] MEDS ORDERED: diphenhydrAMINE HCL 50 MG/ML VIAL IM ONE ×2 (13:30→20:30)
== END 2017-05-25 00:29 ==
LOC: NEPC 07:34 → NEPJ 05-25 00:29
DX: F31.9 Bipolar disorder, unspecified (principal); F43.25 Adjustment disorder with mixed disturbance of emotions and conduct; Z76.0 Encounter for issue of repeat prescription
CPT/HCPCS: 96372; 99284; J1200; J3486